=== PATIENT | female | born 1965 | race Hispanic/Latino ===

== ENCOUNTER → 2018-11-27 | Outpatient (CLI) | payer OTHER | END | disposition home or self-care (01) | LOC: OIH 14:39 | PROVIDERS: ATTEND Family Medicine | DX: Z13.6 Encounter for screening for cardiovascular disorders (principal) | CPT/HCPCS: 75571 ==

== ENCOUNTER → 2019-02-19 | Outpatient (CLI) | payer BC | END | disposition home or self-care (01) | LOC: RAH 08:38 | PROVIDERS: ATTEND Family Medicine | DX: R10.30 Lower abdominal pain, unspecified (principal); K21.9 Gastro-esophageal reflux disease without esophagitis; I10 Essential (primary) hypertension; Z90.49 Acquired absence of other specified parts of digestive tract | CPT/HCPCS: 76882 ==

== ENCOUNTER 2022-11-05 06:37 | Emergency (ER) | payer OTHER, BC ==
[~2022-11-05] VITALS: Ht 165.1 cm; Wt 90.7 kg
[2022-11-05] MEDS ORDERED: ONDANSETRON ODT 4MG TAB SL ONE (07:30)
[2022-11-05] MEDS ORDERED: IBUPROFEN 600 MG TABLET PO ONE (07:30)
[2022-11-05 09:04] VITALS: BP 125/75
[2022-11-05] MEDS ORDERED: CYCL10TA16 PO (09:05)
[2022-11-05] MEDS ORDERED: IBUP-2070 PO (09:05)
[2022-11-05] MEDS ORDERED: ONDA4TAB10 PO (09:23)
== END 2022-11-05 09:27 | disposition home or self-care (01) ==
LOC: EDH 06:37
DX: S13.4XXA Sprain of ligaments of cervical spine, initial encounter (principal); R51.9 Headache, unspecified; R11.0 Nausea; Z79.1 Long term (current) use of non-steroidal anti-inflammatories (NSAID); V89.2XXA Person injured in unspecified motor-vehicle accident, traffic, initial encounter; Y93.89 Activity, other specified; Y92.89 Other specified places as the place of occurrence of the external cause; Y99.8 Other external cause status
CPT/HCPCS: 70450; 72125